=== PATIENT | male | born 1980 | race Caucasian/White ===

== ENCOUNTER → 2017-02-05 | Outpatient (CLI) | payer BC ==
[~2017-02-05] MED LIST: AMOX1TAB12 PO
[2017-02-05 18:18] VITALS: BP 122/77
--- NOTE | 2017-02-05 18:18 | Urgent Care T Sheet Gen (E) ---
Intake General Temperature (Fahrenheit): 97.7 Pulse: 70 Blood Pressure Systolic: 122 Blood Pressure Diastolic: 77 Respirations: 18 SPO2: 99 Description of Symptoms Patient presents with illness x 2 weeks. Notes sinus congestion and irritated throat. Thought he was getting better however the symptoms worsened a few days ago. No fever. No cough. Been taking Mucinex and Claritin without improvement. History of Present Illness Allergies: Coded Allergies: Sulfa (Sulfonamide Antibiotics) (Verified Allergy, Intermediate, rash, ) Respiratory Constitutional Symptoms: No syptoms reported EENTM: Nose Congestion Throat pain Respiratory: No symptoms reported Cardiovascular: No symptoms reported Gastrointestinal/Abdominal: No symptoms reported All Other Systems Reviewed Remaining Systems: All other systems reviewed with negative findings Past Ckldpwk-Lrnppf-Gkzhsh Hx Surgeries/Hospitalizations Hospitalization/Surgery Hx: healthy Physical Exam Physical Exam General Appearance: WD/WN No apparent distress Eyes, Ears, Nose, Throat Ex: TMs normal Pharynx normal Other (red, swollen nasal turbinates (R worse than L). Purulent drainage. Tender over maxillary sinuses.) Neck Exam: SuppleNo Lymphadenopathy Respiratory Exam: Lungs clear Normal breath sounds Cardiovascular Exam: Regular rate, rhythm Departure Urgent Care Impression Impression: Primary Impression: Sinusitis Qualified Code: J01.00 - Acute maxillary sinusitis, unspecified Departure Disposition: HOME OR SELF-CARE Condition: Stable Referrals: Joey Vasquez MD (PCP) Additional Instructions: I have started the patient on Augmentin for treatment Rest. Fluids May continue with Mucinex as directed Return if no better Patient understands DC instructions. All questions were answered. Scripts Amoxicillin/Clavulanate Potassium (Augmentin 875mg/125mg)1 Each Tablet1 Tab PO BID #14 TAB Ref 0 Prov:ROBERT CADENA 02/05/17 End of report . ROBERT CADENA Feb 05, 2017 18:18
== END ==
LOC: MHUC 18:03
PROVIDERS: ATTEND Physician Assistant
DX: J01.00 Acute maxillary sinusitis, unspecified (principal)
CPT/HCPCS: 99213